=== PATIENT | female | born 1985 | race Caucasian/White ===

== ENCOUNTER 2016-12-09 11:38 | Emergency (ER) | payer SELFPAY ==
[2016-12-09] MEDS ORDERED: ONDANSETRON 4 MG TAB.RAPDIS PO ONE (12:01)
--- NOTE | 2016-12-09 12:02 | ER Document Report ---
ED Medical Screen (RME) - General Stated Complaint: VAGINAL DISCHARGE, HEADACHE Notes: Patient complains of vaginal discharge, itchy and has a green tint for 2 weeks. States vomiting for the last 3 days. Denies fever or diarrhea. I have greeted and performed a rapid initial assessment of this patient. A comprehensive ED assessment and evaluation of the patient, analysis of test results and completion of the medical decision making process will be conducted by additional ED providers. TRAVEL OUTSIDE OF THE [place] IN LAST 30 DAYS: No - Related Data Allergies/Adverse Reactions: Penicillins Allergy (Severe, Verified 12/09/16 12:01) Anaphylaxis Past Medical History - Past Medical History Cardiac Medical History: Reports: Hx Congestive Heart Failure Pulmonary Medical History: Reports: Hx Bronchitis Renal/ Medical History: Reports: Hx Ovarian Cysts - PCOS IN THE PAST, WAS ON METFORMIN BEFORE . Denies: Hx Pelvic Inflammatory Disease Malignancy Medical History: Denies: Hx Breast Cancer, Hx Cervical Cancer, Hx Ovarian Cancer GI Medical History: Reports: Hx Gastroesophageal Reflux Disease. Denies: Hx Hiatal Hernia, Hx Ulcer Musculoskeltal Medical History: Denies Hx Fibromyalgia, Reports Hx Musculoskeletal Deformity, Reports Hx Musculoskeletal Trauma Psychiatric Medical History: Reports: Hx Anxiety, Hx Depression - ON CELEXA Denies: Hx Bipolar Disorder, Hx Post Traumatic Stress Disorder, Hx Schizophrenia Traumatic Medical History: Reports: Hx Fractures, Hx Spine Fracture Infectious Medical History: Denies: Hx HIV Past Surgical History: Reports: Hx Appendectomy, Hx Section - X3 - Immunizations Immunizations up to date: Yes Hx Diphtheria, Pertussis, Tetanus Vaccination: Yes Physical Exam - Vital signs Vitals: Temp Pulse Resp BP Pulse Ox 97.9 F 103 H 16 116/80 98 12/09/16 11:57 12/09/16 11:57 12/09/16 11:57 12/09/16 11:57 12/09/16 11:57 Course - Vital Signs Vital signs: Temp Pulse Resp BP Pulse Ox 97.9 F 103 H 16 116/80 98 12/09/16 11:57 12/09/16 11:57 12/09/16 11:57 12/09/16 11:57 12/09/16 11:57
[2016-12-09 12:38] LABS: APPEARANCE,URINE CLOUDY; BILIRUBIN,URINE NEGATIVE (NEGATIVE); GLUCOSE, URINE NEGATIVE (NEGATIVE); KETONES,URINE TRACE mg/dL (NEGATIVE); LEUKOCYTE ESTERASE,URINE LARGE (NEGATIVE); NITRITE,URINE NEGATIVE (NEGATIVE); PROTEIN,URINE 100 mg/dL (NEGATIVE); URINE SPECIFIC GRAVITY 1.029; UROBILINOGEN,URINE NEGATIVE mg/dL (<2.0)
[2016-12-09] MEDS ORDERED: NORMAL SALINE 1000 ML 1,000 ML IV ONE (14:44)
[2016-12-09] MEDS ORDERED: ACETAMINOPHEN 325 MG TABLET PO ONE (14:45)
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
[2016-12-09] MEDS ORDERED: DIPHENHYDRAMINE HCL 50 MG/ML VIAL IV ONE (16:45)
[2016-12-09] MEDS ORDERED: METOCLOPRAMIDE HCL INJ/PF 10 MG/2 ML SDV IV ONE (16:45)
[2016-12-09] MEDS ORDERED: KETOROLAC TROMETHAMINE INJ/PF 30 MG/1 ML SDV IV ONE (16:45)
[2016-12-09 17:24] LABS: ABSOLUTE EOSINOPHILS # (AUTO) 0.1 10^3/uL (0.0-0.6); ABSOLUTE LYMPHOCYTES (AUTO) 1.5 10^3/uL (0.5-4.7); ABSOLUTE MONOCYTES (AUTO) 0.4 10^3/uL (0.1-1.4); ABSOLUTE NEUT (AUTO) 3.8 10^3/uL (1.7-8.2); BASOPHILS % (AUTO) 0.5 % (0-2); EOSINOPHILS % (AUTO) 1.3 % (0-6); HEMATOCRIT 38.8 % (36.0-47.0); HEMOGLOBIN 13.1 g/dL (12.0-15.5); HGB HCT DIFFERENCE 0.5; LYMPHOCYTES % (AUTO) 25.9 % (13-45); MEAN CORPUSCULAR HGB CONC 33.9 g/dL (32.0-36.0); MEAN CORPUSCULAR VOLUME 89 fl (80-97); MONOCYTES % (AUTO) 7.5 % (3-13); RED BLOOD COUNT 4.38 10^6/uL (3.72-5.28); RED CELL DISTRIBUTION WIDTH 12.5 % (11.5-14.0); SEGMENTED NEUTROPHILS % (AUTO) 64.8 % (42-78); WHITE BLOOD COUNT 5.9 10^3/uL (4.0-10.5)
[2016-12-09 17:45] LABS: ALANINE AMINOTRANSFERASE 62 U/L (9-52); ALBUMIN 4.2 g/dL (3.5-5.0); ALKALINE PHOSPHATASE 81 U/L (38-126); ANION GAP 13 (5-19); ASPARTATE AMINO TRANSFERASE 33 U/L (14-36); BILIRUBIN,DIRECT 0.3 mg/dL (0.0-0.4); BILIRUBIN,TOTAL 0.6 mg/dL (0.2-1.3); BLOOD UREA NITROGEN 10 mg/dL (7-20); CALCIUM 9.8 mg/dL (8.4-10.2); CARBON DIOXIDE 27 mmol/L (22-30); CHLORIDE 103 mmol/L (98-107); CREATININE RESULT 0.66 mg/dL (0.52-1.25); GLUCOSE 86 mg/dL (75-110); LIPASE 82.6 U/L (23-300); POTASSIUM 4.1 mmol/L (3.6-5.0); SODIUM 143.2 mmol/L (137-145); TOTAL PROTEIN 7.6 g/dL (6.3-8.2)
[2016-12-09] MEDS ORDERED: METRONIDAZOLE 500 MG TABLET PO ONE (17:45)
[2016-12-09 18:26] LABS: CHLAM PCR NOT DETECTED (NOT DETECT)
[2016-12-09] MEDS ORDERED: AZITHROMYCIN 250 MG TABLET PO ONE (19:51)
[2016-12-09] MEDS ORDERED: GENTAMICIN SULFATE INJ 80 MG/2 ML VIAL IM ONE (19:53)
[2016-12-09 21:46] VITALS: BP 99/56
== END 2016-12-09 21:46 | disposition home or self-care (01) ==
LOC: ER 11:38
DX: A59.01 Trichomonal vulvovaginitis (principal); R10.2 Pelvic and perineal pain; R51 Headache; R11.2 Nausea with vomiting, unspecified; F17.200 Nicotine dependence, unspecified, uncomplicated; K21.9 Gastro-esophageal reflux disease without esophagitis; Z88.0 Allergy status to penicillin
CPT/HCPCS: 99284; 96372; 96374; 96375; 36415; 87210; 83690; 85025; 81025; 80053; 81001; 87491; 87591; 76830; 93976; 70450; J1200; S0119; J1580; J1885; J2765; J7030

== ENCOUNTER 2017-01-14 20:57 | Emergency (ER) | payer SELFPAY ==
[2017-01-14 21:09] VITALS: BP 119/84
[2017-01-14 21:45] LABS: ABSOLUTE BASOPHILS # (AUTO) 0.1 10^3/uL (0.0-0.2); ABSOLUTE EOSINOPHILS # (AUTO) 0.1 10^3/uL (0.0-0.6); ABSOLUTE LYMPHOCYTES (AUTO) 1.7 10^3/uL (0.5-4.7); ABSOLUTE MONOCYTES (AUTO) 0.5 10^3/uL (0.1-1.4); ABSOLUTE NEUT (AUTO) 3.5 10^3/uL (1.7-8.2); BASOPHILS % (AUTO) 0.9 % (0-2); EOSINOPHILS % (AUTO) 2.3 % (0-6); HEMOGLOBIN 13.7 g/dL (12.0-15.5); HGB HCT DIFFERENCE 1.1; LYMPHOCYTES % (AUTO) 28.4 % (13-45); MEAN CORPUSCULAR HEMOGLOBIN 29.7 pg (27.0-33.4); MEAN CORPUSCULAR HGB CONC 34.3 g/dL (32.0-36.0); MEAN CORPUSCULAR VOLUME 87 fl (80-97); MONOCYTES % (AUTO) 9.1 % (3-13); RED BLOOD COUNT 4.61 10^6/uL (3.72-5.28); RED CELL DISTRIBUTION WIDTH 12.1 % (11.5-14.0); SEGMENTED NEUTROPHILS % (AUTO) 59.3 % (42-78); WHITE BLOOD COUNT 5.9 10^3/uL (4.0-10.5)
[2017-01-14 21:47] LABS: APPEARANCE,URINE SLIGHTLY-CLOUDY; BILIRUBIN,URINE NEGATIVE (NEGATIVE); GLUCOSE, URINE NEGATIVE (NEGATIVE); KETONES,URINE 20 mg/dL (NEGATIVE); LEUKOCYTE ESTERASE,URINE NEGATIVE (NEGATIVE); NITRITE,URINE NEGATIVE (NEGATIVE); PROTEIN,URINE 30 mg/dL (NEGATIVE); URINE SPECIFIC GRAVITY 1.027
[2017-01-14 22:04] LABS: ALANINE AMINOTRANSFERASE 86 U/L (9-52); ALBUMIN 4.8 g/dL (3.5-5.0); ALKALINE PHOSPHATASE 75 U/L (38-126); ANION GAP 17 (5-19); ASPARTATE AMINO TRANSFERASE 62 U/L (14-36); BILIRUBIN,DIRECT 0.4 mg/dL (0.0-0.4); BILIRUBIN,TOTAL 1.1 mg/dL (0.2-1.3); BLOOD UREA NITROGEN 16 mg/dL (7-20); CALCIUM 10.6 mg/dL (8.4-10.2); CARBON DIOXIDE 33 mmol/L (22-30); CHLORIDE 93 mmol/L (98-107); CREATININE RESULT 0.84 mg/dL (0.52-1.25); GLUCOSE 93 mg/dL (75-110); LIPASE 54.1 U/L (23-300); POTASSIUM 3.6 mmol/L (3.6-5.0); SODIUM 143.3 mmol/L (137-145); TOTAL PROTEIN 8.6 g/dL (6.3-8.2)
== END 2017-01-14 23:55 | disposition left against medical advice (07) ==
LOC: ER 20:57
DX: Z53.21 Procedure and treatment not carried out due to patient leaving prior to being seen by health care provider (principal)
CPT/HCPCS: 36415; 80053; 81001; 81025; 83690; 85025

== ENCOUNTER 2017-02-13 11:58 | Emergency (ER) | payer SELFPAY ==
[2017-02-13 12:09] VITALS: BP 114/74
[2017-02-13] MEDS ORDERED: CEPHALEXIN 500 MG CAPSULE PO ONE (12:42)
[2017-02-13] MEDS ORDERED: SULFAMETHOXAZOLE/TRIMETHOPRIM 800-160 MG TABLET PO ONE (12:42)
--- NOTE | 2017-02-13 12:44 | ER Document Report ---
ED Skin Rash/Insect Bite/Abscs - General Chief Complaint: Hand Swelling Stated Complaint: POSSIBLE INSECT BITE Time Seen by Provider: 02/13/17 12:33 Mode of Arrival: Ambulatory Information source: Patient TRAVEL OUTSIDE OF THE [place] IN LAST 30 DAYS: No - HPI Patient complains to provider of: Tender/swollen area, Insect bite Onset: Other - 3 days Onset/Duration: Persistent Quality of pain: Achy Severity: Moderate Pain Level: 3 Skin Character: Erythema, Swelling, Tenderness Skin Temperature: Hot Quality of rash: Painful Identify cause: No Exacerbated by: Denies Relieved by: Denies Similar symptoms previously: No Recently seen / treated by doctor: No Notes: Is a 31-year-old female who presents to the emergency room complaining of painful erythematous swelling to her right hand going on and worsening over the past 2-3 days, she reports initially complains that her on the dorsal surface of the hand and she is unaware of what that was, her symptoms have worsened, there is no drainage, no injury, she woke up this morning and has swelling with redness to her right lower eyelid as well - Related Data Allergies/Adverse Reactions: Penicillins Allergy (Severe, Verified 02/13/17 12:08) Anaphylaxis Past Medical History - General Information source: Patient - Social History Smoking Status: Current Every Day Smoker Chew tobacco use (# tins/day): No Frequency of alcohol use: None Drug Abuse: None Family History: Arthritis, Malignancy, Thyroid Disfunction Patient has suicidal ideation: No Patient has homicidal ideation: No - Past Medical History Cardiac Medical History: Reports: Hx Congestive Heart Failure Pulmonary Medical History: Reports: Hx Bronchitis Renal/ Medical History: Reports: Hx Ovarian Cysts - PCOS IN THE PAST, WAS ON METFORMIN BEFORE . Denies: Hx Peritoneal Dialysis, Hx Pelvic Inflammatory Disease Malignancy Medical History: Denies: Hx Breast Cancer, Hx Cervical Cancer, Hx Ovarian Cancer GI Medical History: Reports: Hx Gastroesophageal Reflux Disease. Denies: Hx Hiatal Hernia, Hx Ulcer Musculoskeltal Medical History: Denies Hx Fibromyalgia, Reports Hx Musculoskeletal Deformity, Reports Hx Musculoskeletal Trauma Psychiatric Medical History: Reports: Hx Anxiety, Hx Depression - ON CELEXA Denies: Hx Bipolar Disorder, Hx Post Traumatic Stress Disorder, Hx Schizophrenia Traumatic Medical History: Reports: Hx Fractures, Hx Spine Fracture Infectious Medical History: Denies: Hx HIV Past Surgical History: Reports: Hx Appendectomy, Hx Section - X3 - Immunizations Immunizations up to date: Yes Hx Diphtheria, Pertussis, Tetanus Vaccination: Yes Review of Systems - Review of Systems Constitutional: No symptoms reported EENT: See HPI Cardiovascular: No symptoms reported Respiratory: No symptoms reported Gastrointestinal: No symptoms reported Genitourinary: No symptoms reported Female Genitourinary: No symptoms reported Musculoskeletal: No symptoms reported Skin: See HPI Hematologic/Lymphatic: No symptoms reported Neurological/Psychological: No symptoms reported -: Yes All other systems reviewed and negative Physical Exam - Vital signs Vitals: Temp Pulse Resp BP Pulse Ox 98 F 94 18 114/74 98 02/13/17 12:08 02/13/17 12:08 02/13/17 12:08 02/13/17 12:08 02/13/17 12:08 - Notes Notes: - General General appearance: Appears well, Alert In distress: None - HEENT Head: Normocephalic, Atraumatic Eyes: Lower eyelid with swelling, erythema, stye development Conjunctiva: Normal Extraocular movements intact: Yes Eyelashes: Normal Pupils: PERRL - Respiratory Respiratory status: No respiratory distress - Cardiovascular Rhythm: Regular - Abdominal Inspection: Normal - Back Back: Normal - Extremities General upper extremity: Right hand with erythema and swelling to dorsal surface , starts at the wrist and ends at the MCPs, there is a small area over the distal portion of the second metacarpal with a puncture, there is no abscess development, no fluctuance, no drainage, distal sensation and motor is intact, 2 + radial pulses General lower extremity: Normal inspection - Neurological Neuro grossly intact: Yes Orientation: AAOx4 [place] Coma Scale Eye Opening: Spontaneous [place] Coma Scale Verbal: Oriented Mookie Coma Scale Motor: Obeys Commands [place] Coma Scale Total: 15 - Psychological Associated symptoms: Normal affect, Normal mood - Skin Skin Temperature: Warm Skin Moisture: Dry Skin Color: Normal Course - Re-evaluation Re-evalutation: 02/13/17 12:47 Patient started on antibiotics for cellulitis of the right hand, advised to follow-up with a primary care provider or return if symptoms worsen, patient acknowledges understanding and agreement with this plan - Vital Signs Vital signs: Temp Pulse Resp BP Pulse Ox 98 F 94 18 114/74 98 02/13/17 12:08 02/13/17 12:08 02/13/17 12:08 02/13/17 12:08 02/13/17 12:08 Discharge - Discharge Clinical Impression: Cellulitis of right hand Sty, external Qualifiers: Laterality: right Eyelid: lower Qualified Code(s): H00.012 - Hordeolum externum right lower eyelid Condition: Stable Disposition: HOME, SELF-CARE Instructions: Cellulitis ([facility]), Sty ([facility]) Additional Instructions: Follow up with your primary care provider in one to 2 days. Return to the emergency room immediately if symptoms worsen or any additional concerns. Prescriptions: Cephalexin Monohydrate [Keflex 500 mg Capsule] 500 mg PO BID #20 capsule Hydrocodone/Acetaminophen [Hydrocodon-Acetaminophen 5-325] 1 each PO Q6 #20 tablet Sulfamethoxazole/Trimethoprim [Bactrim Ds Tablet] 1 each PO BID #20 tablet Forms: Special Work Note, Smoking Cessation Education
== END 2017-02-13 12:48 | disposition home or self-care (01) ==
LOC: ER 11:58
DX: L03.113 Cellulitis of right upper limb (principal); H00.012 Hordeolum externum right lower eyelid; M79.89 Other specified soft tissue disorders; F17.200 Nicotine dependence, unspecified, uncomplicated; I50.9 Heart failure, unspecified
CPT/HCPCS: 99283

== ENCOUNTER 2017-03-26 15:40 | Emergency (ER) | payer SELFPAY ==
--- NOTE | 2017-03-26 17:02 | ER Document Report ---
HPI - HPI Patient complains to provider of: pain and swelling of left elbow, possible bug bite Onset: Other - 3 dyas ago Quality of pain: Achy, Throbbing Pain Level: 5 Associated Symptoms: denies: Chills, Fever Exacerbated by: Movement, Walking Relieved by: Remaining still Recently seen / treated by doctor: No - CARDIOVASCULAR Cardiovascular: DENIES: Chest pain - REPRODUCTIVE LMP: november 2016 Reproductive: DENIES: : - DERM Skin Color: Erythema Past Medical History - Social History Smoking Status: Unknown if Ever Smoked Family History: Arthritis, Malignancy, Thyroid Disfunction Patient has suicidal ideation: No Patient has homicidal ideation: No - Past Medical History Cardiac Medical History: Reports: Hx Congestive Heart Failure Pulmonary Medical History: Reports: Hx Bronchitis Renal/ Medical History: Reports: Hx Ovarian Cysts - PCOS IN THE PAST, WAS ON METFORMIN BEFORE . Denies: Hx Peritoneal Dialysis, Hx Pelvic Inflammatory Disease Malignancy Medical History: Denies: Hx Breast Cancer, Hx Cervical Cancer, Hx Ovarian Cancer GI Medical History: Reports: Hx Gastroesophageal Reflux Disease. Denies: Hx Hiatal Hernia, Hx Ulcer Musculoskeltal Medical History: Denies Hx Fibromyalgia, Reports Hx Musculoskeletal Deformity, Reports Hx Musculoskeletal Trauma Psychiatric Medical History: Reports: Hx Anxiety, Hx Depression - ON CELEXA Denies: Hx Bipolar Disorder, Hx Post Traumatic Stress Disorder, Hx Schizophrenia Traumatic Medical History: Reports: Hx Fractures, Hx Spine Fracture Infectious Medical History: Denies: Hx HIV Past Surgical History: Reports: Hx Appendectomy, Hx Section - X3 - Immunizations Immunizations up to date: Yes Hx Diphtheria, Pertussis, Tetanus Vaccination: Yes Vertical Provider Document - CONSTITUTIONAL Agree With Documented VS: Yes Exam Limitations: No Limitations General Appearance: WD/WN, No Apparent Distress - INFECTION CONTROL TRAVEL OUTSIDE OF THE [place] IN LAST 30 DAYS: No - RESPIRATORY Respiratory: Breath Sounds Normal, No Respiratory Distress, Chest Non-Tender O2 Sat by Pulse Oximetry: 99 - CARDIOVASCULAR Cardiovascular: Regular Rate, Regular Rhythm, No Murmur Pulses: Normal: Radial - MUSCULOSKELETAL/EXTREMETIES Musculoskeletal/Extremeties: MAEW, FROM, Tender - at site, No Edema. negative: Eccymosis - NEURO Level of Consciousness: Awake, Alert, Appropriate Motor/Sensory: No Motor Deficit, No Sensory Deficit - DERM Integumentary: Warm, Dry Adult Front & Back Diagram: 1 - cellulitis with central head Notes: no fluctuance. There is induration, no drainage Course - Re-evaluation Re-evalutation: 03/26/17 21:38 31-year-old female who is hemodynamic stable, no acute distress and afebrile. Presentation consistent with localized cellulitis. Borders marked. Patient initiated on antibiotics to cover for MRSA. Patient to be discharged home with strict return precautions. Patient is agreeable with plan. - Vital Signs Vital signs: Temp Pulse Resp BP Pulse Ox 98.3 F 94 18 133/89 H 99 03/26/17 15:58 03/26/17 15:58 03/26/17 15:58 03/26/17 15:58 03/26/17 15:58 Discharge - Discharge Clinical Impression: Cellulitis Qualifiers: Site of cellulitis: extremity Site of cellulitis of extremity: upper extremity Laterality: left Qualified Code(s): L03.114 - Cellulitis of left upper limb Condition: Good Disposition: HOME, SELF-CARE Instructions: Cellulitis ([facility]) Prescriptions: Acetaminophen with Codeine [Acetaminophen-Cod #3 Tablet] 1 each PO Q6HP PRN #15 tablet PRN Reason: Cephalexin Monohydrate [Keflex 500 mg Capsule] 500 mg PO BID #20 capsule Sulfamethoxazole/Trimethoprim [Bactrim Ds Tablet] 1 each PO BID #20 tablet Referrals: KORIN LEARY MD [NO LOCAL MD] - Follow up as needed [facility] [NO LOCAL MD] - Follow up as needed
[2017-03-26] MEDS ORDERED: SULFAMETHOXAZOLE/TRIMETHOPRIM 800-160 MG TABLET PO ONE (17:12)
[2017-03-26] MEDS ORDERED: ACETAMINOPHEN WITH CODEINE #3 TABLET PO ONE (17:12)
[2017-03-26] MEDS ORDERED: CEPHALEXIN 500 MG CAPSULE PO ONE (17:12)
[2017-03-26 17:25] VITALS: BP 132/88
== END 2017-03-26 17:18 | disposition home or self-care (01) ==
LOC: ER 15:40
DX: L03.114 Cellulitis of left upper limb (principal); M25.522 Pain in left elbow; M79.89 Other specified soft tissue disorders
CPT/HCPCS: 99281

== ENCOUNTER 2017-03-28 13:52 | Inpatient (IN) | payer SELFPAY ==
[2017-03-28] MEDS ORDERED: VANCOMYCIN HCL INJ 1000 MG VIAL IV ONE (14:43)
[2017-03-28] MEDS ORDERED: HYDROMORPHONE HCL INJ/PF 2 MG/ML AMPULE IV ONE (14:43)
--- NOTE | 2017-03-28 14:59 | ER Document Report ---
ED General - General Chief Complaint: Abscess Stated Complaint: LEFT ELBOW INFECTION Time Seen by Provider: 03/28/17 14:16 TRAVEL OUTSIDE OF THE [place] IN LAST 30 DAYS: No - HPI Notes: Patient is a 31-year-old female presents the ED complaining of a worsening infection to her left elbow. Patient states that she was seen 2 days ago and was prescribed Keflex and Bactrim. At that time, the she was told it was a cellulitis and she did not notice any abscess/discharge. Pt states that she has been having worsening pain, redness, and now purulent discharge. Pt states that the skin was marked two days ago with a skin marker and she was told to return if the redness went beyond the border, which it now has. Pt states that she is still able to move her elbow, but does have pain involved. Pt states that her pain is mod-severe. She is still able to eat/drink with no problems. Denies history of MRSA. Denies any headache, fever, uri, sore throat, cp, palp , syncope, cough, wheeze, sob, dyspnea, abd pain, n/v/d, dysuria. - Related Data Allergies/Adverse Reactions: Penicillins Allergy (Severe, Verified 03/28/17 13:54) Anaphylaxis Past Medical History - Social History Smoking Status: Current Every Day Smoker Family History: Arthritis, Malignancy, Thyroid Disfunction Patient has suicidal ideation: No Patient has homicidal ideation: No - Past Medical History Cardiac Medical History: Reports: Hx Congestive Heart Failure Pulmonary Medical History: Reports: Hx Bronchitis Renal/ Medical History: Reports: Hx Ovarian Cysts - PCOS IN THE PAST, WAS ON METFORMIN BEFORE . Denies: Hx Peritoneal Dialysis, Hx Pelvic Inflammatory Disease Malignancy Medical History: Denies: Hx Breast Cancer, Hx Cervical Cancer, Hx Ovarian Cancer GI Medical History: Reports: Hx Gastroesophageal Reflux Disease. Denies: Hx Hiatal Hernia, Hx Ulcer Musculoskeltal Medical History: Denies Hx Fibromyalgia, Reports Hx Musculoskeletal Deformity, Reports Hx Musculoskeletal Trauma Psychiatric Medical History: Reports: Hx Anxiety, Hx Depression - ON CELEXA Denies: Hx Bipolar Disorder, Hx Post Traumatic Stress Disorder, Hx Schizophrenia Traumatic Medical History: Reports: Hx Fractures, Hx Spine Fracture Infectious Medical History: Denies: Hx HIV Past Surgical History: Reports: Hx Appendectomy, Hx Section - X3 - Immunizations Immunizations up to date: Yes Hx Diphtheria, Pertussis, Tetanus Vaccination: Yes Review of Systems - Review of Systems Notes: REVIEW OF SYSTEMS: CONSTITUTIONAL : Denies fever, chills, or sweats. Denies recent illness. EENT: Denies eye, ear, throat, or mouth pain or symptoms. Denies nasal or sinus congestion or discharge. Denies throat, tongue, or mouth swelling or difficulty swallowing. CARDIOVASCULAR: Denies chest pain. Denies palpitations or racing or irregular heart beat. Denies ankle edema. RESPIRATORY: Denies cough, cold, or chest congestion. Denies shortness of breath, difficulty breathing, or wheezing. GASTROINTESTINAL: Denies abdominal pain or distention. Denies nausea, vomiting , or diarrhea. Denies blood in vomitus, stools, or per rectum. Denies black, tarry stools. Denies constipation. GENITOURINARY: Denies difficulty urinating, painful urination, burning, frequency, blood in urine, or discharge. MUSCULOSKELETAL: see hpi SKIN: see hpi NEUROLOGICAL: Denies dizziness or lightheadedness. Denies headache. Denies weakness or paralysis or loss of use of either side. Denies problems with gait or speech. Denies sensory loss, numbness, or tingling. ALL OTHER SYSTEMS REVIEWED AND NEGATIVE. Dictation was performed using [employer] voice recognition software Physical Exam - Vital signs Vitals: Temp Pulse Resp BP Pulse Ox 99.5 F 94 18 132/80 H 99 03/28/17 13:55 03/28/17 13:55 03/28/17 13:55 03/28/17 13:55 03/28/17 13:55 Notes: PHYSICAL EXAMINATION: GENERAL: Well-appearing, well-nourished and in no acute distress. NECK: Normal range of motion, supple without lymphadenopathy. No rigidity. LUNGS: Breath sounds clear to auscultation bilaterally and equal. No wheezes rales or rhonchi. HEART: Regular rate and rhythm without murmurs, rubs, gallops. Musculoskeletal: Left UE: FROM to passive/active. Strength 5+/5. N/V intact distal. + tenderness to palpation the olecranon and the peritrochlear left elbow along with the surrounding soft tissue of the arm/forearm. Extremities: No cyanosis, clubbing, or edema b/l. Peripheral pulses 2+. Capillary refill less than 3 seconds. NEUROLOGICAL: Normal sensory, motor exams PSYCH: Normal mood, normal affect. SKIN: + erythema, inflammation, induration, purulent discharge, abscess ( superficially showing approx 2-3cm) to the anteroposterior elbow/prox forearm. Surrounding erythema well beyond the previously skin marked borders expanding into the mid forearm and mid/distal arm. No obvious red streaking visualized. + tenderness. Course - Re-evaluation Re-evalutation: 03/28/17 14:[address] Armstrong who also eval'd the patient: Patient is an afebrile, well-hydrated, 31yo female who presents with worsening/ expanding cellulitis, development of small abscess, and lymphangitis. Vitals are currently stable and PE otherwise unremarkable. Saline lock placed, CT with contrast of the left UE, BW, dilaudid, fentanyl, and IV Vancomycin 1g. CT did not show any large abscess, but did not the marked cellulitis. Urine drug screen/ also ordered per hospitalist. 03/28/17 18:[address] Arnett (Ortho) and Dr. Bojorquez (hospitalist). Both came and evaluated the patient in her room. Ortho would like her to be admitted to floor and he can consult with any worsening abscess, pending response to IV antibiotics. We will admit for continued IV antibiotic management through hospitalist services to med floor. Pt is in agreement with plan. - Vital Signs Vital signs: Temp Pulse Resp BP Pulse Ox 99.5 F 74 16 106/70 97 03/28/17 13:55 03/28/17 16:43 03/28/17 16:43 03/28/17 16:43 03/28/17 16:43 - Laboratory Result Diagrams: 03/28/17 14:45 03/28/17 14:45 Laboratory results interpreted by me: 03/28/17 03/28/17 14:45 14:45 RDW 14.4 H BUN 6 L Glucose 117 H AST 103 H ALT 212 H Discharge - Discharge Clinical Impression: Cellulitis Qualifiers: Site of cellulitis: extremity Site of cellulitis of extremity: upper extremity Laterality: left Qualified Code(s): L03.114 - Cellulitis of left upper limb Condition: Stable Disposition: ADMITTED INPATIENT Admitting Provider: Hospitalist - Dr. Bojorquez Unit Admitted: Medical Floor
[2017-03-28 15:18] LABS: ABSOLUTE EOSINOPHILS # (AUTO) 0.1 10^3/uL (0.0-0.6); ABSOLUTE LYMPHOCYTES (AUTO) 1.3 10^3/uL (0.5-4.7); ABSOLUTE MONOCYTES (AUTO) 0.7 10^3/uL (0.1-1.4); ABSOLUTE NEUT (AUTO) 4.9 10^3/uL (1.7-8.2); BASOPHILS % (AUTO) 0.4 % (0-2); EOSINOPHILS % (AUTO) 1.4 % (0-6); HEMATOCRIT 41.3 % (36.0-47.0); HEMOGLOBIN 13.7 g/dL (12.0-15.5); HGB HCT DIFFERENCE -0.2; LYMPHOCYTES % (AUTO) 18.3 % (13-45); MEAN CORPUSCULAR HEMOGLOBIN 29.3 pg (27.0-33.4); MEAN CORPUSCULAR HGB CONC 33.3 g/dL (32.0-36.0); MEAN CORPUSCULAR VOLUME 88 fl (80-97); MONOCYTES % (AUTO) 9.9 % (3-13); RED BLOOD COUNT 4.69 10^6/uL (3.72-5.28); RED CELL DISTRIBUTION WIDTH 14.4 % (11.5-14.0)
[2017-03-28 15:39] LABS: ALANINE AMINOTRANSFERASE 212 U/L (9-52); ALBUMIN 4.1 g/dL (3.5-5.0); ALKALINE PHOSPHATASE 86 U/L (38-126); ANION GAP 12 (5-19); ASPARTATE AMINO TRANSFERASE 103 U/L (14-36); BILIRUBIN,DIRECT 0.4 mg/dL (0.0-0.4); BILIRUBIN,TOTAL 0.8 mg/dL (0.2-1.3); BLOOD UREA NITROGEN 6 mg/dL (7-20); CALCIUM 9.7 mg/dL (8.4-10.2); CARBON DIOXIDE 24 mmol/L (22-30); CHLORIDE 104 mmol/L (98-107); CREATININE RESULT 0.55 mg/dL (0.52-1.25); GLUCOSE 117 mg/dL (75-110); POTASSIUM 4.1 mmol/L (3.6-5.0); SODIUM 139.8 mmol/L (137-145); TOTAL PROTEIN 7.6 g/dL (6.3-8.2)
--- NOTE | 2017-03-28 16:11 | RADIOLOGY REPORT (SQ) ---
EXAM DESCRIPTION: CT LT UPPER EXTREMITY WITH COMPLETED DATE/TIME: 03/28/2017 3:47 pm REASON FOR STUDY: expanding cellulitis/abscess left prox forearm/elb COMPARISON: None TECHNIQUE: Axial imaging performed through the left elbow with reformatted coronal and sagittal imag ing windowed for bone and soft tissues. Imaging was performed after the uneventful intravenous admin istration of 50 mL of Isovue 370. Images saved to PACS. 3D IMAGING: Were 3D images as MIP, SSD, or volume rendering performed at the work station? No All CT scanners at this facility use dose modulation, iterative reconstruction, and/or weight based d osing when appropriate to reduce radiation dose to as low as reasonably achievable (ALARA). [facility]: Dose Right [facility]: CareDose [facility]: Dose Right [facility]: Teradose 4D [facility]: Smart Technologies LIMITATIONS: None. RADIATION DOSE: 4.12 mGy. FINDINGS: SOFT TISSUES: Posterior forearm subcutaneous fat stranding extends from the level of the o lecranon distally extending beyond the imaged field of view. No defined rim enhancing collection is present, to suggest abscess at this time. There is no evidence of extension into the muscle. There is no periosteal reaction to suggest osteomyelitis. BONES: No acute fracture. No dislocation. MINERALIZATION: Normal. OTHER: No other significant finding. IMPRESSION: Extensive subcutaneous fat stranding consistent with given history of cellulitis; no def ined abscess or evidence of osteomyelitis. TECHNICAL DOCUMENTATION: JOB ID: [id number] Quality ID # [id number]: Final reports with documentation of one or more dose reduction techniques (e.g., Au tomated exposure control, adjustment of the mA and/or kV according to patient size, use of iterative reconstruction technique) 2010 [employer]- All Rights Reserved
[2017-03-28] MEDS ORDERED: FENTANYL CITRATE INJ/PF 100 MCG/2 ML AMPUL IV ONE (16:27)
[2017-03-28] MEDS ORDERED: VANCOMYCIN HCL 0 MG in DEXTROSE 5%-WATER 250 ML IV NR (17:30)
[2017-03-28] MEDS ORDERED: MORPHINE SULFATE 10 MG/ML INJ IV PRN (17:31)
[2017-03-28] MEDS ORDERED: ACETAMINOPHEN 325 MG TABLET PO PRN (17:33)
[2017-03-28] MEDS ORDERED: MAG HYDROX/AL HYDROX/SIMETH SUSP 30 ML UDCUP PO PRN (17:33)
[2017-03-28] MEDS ORDERED: ONDANSETRON HCL INJ/PF 4 MG/2 ML SDV IV PRN (17:33)
[2017-03-28] MEDS ORDERED: PROMETHAZINE HCL 25 MG SUPP.RECT PR PRN (17:33)
[2017-03-28 18:00] LABS: PROTHROMBIN TIME 14.9 SEC (11.4-15.4)
--- NOTE | 2017-03-28 18:16 | PDOC H&P ---
History of Present Illness Admission Date/PCP: 03/28/2017 No PCP History of Present Illness: Patient is a 31-year-old female presents the ED complaining of a worsening infection to her left elbow. Patient states that she was seen 2 days ago and was prescribed Keflex and Bactrim. At that time, the she was told it was a cellulitis and she did not notice any abscess/discharge. Pt states that she has been having worsening pain, redness, and now purulent discharge. Pt states that the skin was marked two days ago with a skin marker and she was told to return if the redness went beyond the border, which it now has. Pt states that she is still able to move her elbow, but does have pain involved. Pt states that her pain is mod-severe. She is still able to eat/drink with no problems. Denies history of MRSA. Denies any headache, fever, uri, sore throat, cp, palp , syncope, cough, wheeze, sob, dyspnea, abd pain, n/v/d, dysuria. Only completed one full day of outpatient therapy. Reports that she tried to pop this lesion. It had a small donovan on it and thought it was a pimple or bug bite. Patient is referred to hospital service for cellulitis Past Medical History Malignancy Medical History: Denies: Breast Cancer, Cervical Cancer, Ovarian Cancer GI Medical History: Denies: Hiatal Hernia Musculoskeltal Medical History: Denies: Fibromyalgia Psychiatric Medical History: Reports: Depression - ON CELEXA, General Anxiety Disorder Denies: Bipolar Disorder, Post Traumatic Stress Disorder Hematology: Reports: Anemia Denies: Hemophilia, Sickle Cell Disease Infectious Medical History: Denies: HIV Past Surgical History Past Surgical History: Reports: Appendectomy, Section - X3, Tubal Ligation Social History Smoking Status: Current Every Day Smoker Cigarettes Packs Per Day: 0.5 Frequency of Alcohol Use: Occasional Hx Recreational Drug Use: No - Advance Directive Resuscitation Status: Full Code Surrogate healthcare decision maker:: sister Family History Family History: Arthritis, Malignancy, Thyroid Disfunction Parental Family History Reviewed: Yes Children Family History Reviewed: Yes Sibling(s) Family History Reviewed.: Yes Medication/Allergy Home Medications: Pnv W-O Ca No5/Fe Fumarate/FA [-U Multiple Vitamin Capsule] 1 cap PO DAILY 06/19/13 Butalb/Acetaminophen/Caffeine [Fioricet 50-325-40 mg Tablet] 1 tab PO PRN PRN Citalopram Hydrobromide [Celexa 20 mg Tablet] 1 tab PO DAILY 11/16/13 Promethazine HCl [Phenergan 25 mg Tablet] 25 - 50 mg PO ASDIR PRN 11/21/13 Ascorbate Calcium [Vitamin C] 1 tab PO TID 11/25/13 Docusate Sodium [Colace 100 mg Capsule] 1 cap PO BID 11/25/13 Ferrous Sulfate [Feosol 325 mg Tablet] 1 tab PO BID 11/25/13 Ibuprofen [Motrin 800 mg Tablet] 1 tab PO Q8HP PRN 11/25/13 Oxycodone HCl/Acetaminophen [Percocet 5-325 mg Tablet] 1 tab PO Q4HP PRN Tramadol HCl [Ultram] 50 mg PO Q6HP PRN #20 tablet 03/06/15 Hydrocodone/Acetaminophen [[place] 5-325 Tablet] 1 each PO Q6 #15 tablet 04/30/15 Hydrocodone/Acetaminophen [[place] 5-325 mg Tablet] 1 tab PO TIDP PRN #14 tablet 07/21/15 Sulfamethoxazole/Trimethoprim [Septra-Ds 800-160 mg Tablet] 1 tab PO BID #20 tablet 07/21/15 Ondansetron [Zofran Odt 4 mg Tablet] 1 - 2 tab PO Q4H #10 tab.rapdis 07/24/15 Oxycodone HCl/Acetaminophen [Percocet 5-325 mg Tablet] 1 - 2 tab PO ASDIR PRN # 20 tablet 07/24/15 Clindamycin HCl 300 mg PO TID #30 capsule 02/17/16 Ondansetron [Zofran Odt 4 mg Tablet] 1 - 2 tab PO Q4H PRN #15 tab.rapdis Oxycodone HCl/Acetaminophen [Percocet 5-325 mg Tablet] 1 - 2 tab PO Q4H PRN #15 tablet 02/17/16 Naproxen 500 mg PO BID #20 tablet 07/02/16 Ondansetron [Zofran Odt 4 mg Tablet] 1 - 2 tab PO Q4H #10 tab.rapdis 07/02/16 Cyclobenzaprine HCl [Flexeril 10 mg Tablet] 10 mg PO TIDP PRN #15 tab 07/04/16 Famotidine [Pepcid 40 mg Tablet] 40 mg PO DAILY 5 Days 08/04/16 Prednisone [Deltasone 10 mg Tablet] 10 mg PO ASDIR PRN #21 tablet 08/04/16 Promethazine HCl [Phenergan 25 mg Tablet] 25 mg PO Q6H PRN #15 tablet 12/09/16 Cephalexin Monohydrate [Keflex 500 mg Capsule] 500 mg PO BID #20 capsule Hydrocodone/Acetaminophen [Hydrocodon-Acetaminophen 5-325] 1 each PO Q6 #20 tablet 02/13/17 Sulfamethoxazole/Trimethoprim [Bactrim Ds Tablet] 1 each PO BID #20 tablet 02/13 Acetaminophen with Codeine [Acetaminophen-Cod #3 Tablet] 1 each PO Q6HP PRN #15 tablet 03/26/17 Cephalexin Monohydrate [Keflex 500 mg Capsule] 500 mg PO BID #20 capsule Sulfamethoxazole/Trimethoprim [Bactrim Ds Tablet] 1 each PO BID #20 tablet 03/26 Allergies/Adverse Reactions: Penicillins Allergy (Severe, Verified 03/28/17 13:54) Anaphylaxis Review of Systems Constitutional: ABSENT: chills, fever(s), headache(s), weight gain, weight loss Eyes: ABSENT: visual disturbances Ears: ABSENT: hearing changes Cardiovascular: ABSENT: chest pain, dyspnea on exertion, edema, orthropnea, palpitations Respiratory: ABSENT: cough, hemoptysis Gastrointestinal: ABSENT: abdominal pain, constipation, diarrhea, hematemesis, hematochezia, nausea, vomiting Genitourinary: ABSENT: dysuria, hematuria Musculoskeletal: ABSENT: joint swelling Integumentary: PRESENT: as per HPI Neurological: ABSENT: abnormal gait, abnormal speech, confusion, dizziness, focal weakness, syncope Psychiatric: ABSENT: anxiety, depression, homidical ideation, suicidal ideation Endocrine: ABSENT: cold intolerance, heat intolerance, polydipsia, polyuria Hematologic/Lymphatic: ABSENT: easy bleeding, easy bruising Physical Exam Vital Signs: Temp Pulse Resp BP Pulse Ox 99.5 F 74 16 106/70 97 03/28/17 13:55 03/28/17 16:43 03/28/17 16:43 03/28/17 16:43 03/28/17 16:43 Intake & Output 03/27/17 03/28/17 03/29/17 06:59 06:59 06:59 Weight 78.6 kg General appearance: PRESENT: no acute distress, well-developed, well-nourished Head exam: PRESENT: atraumatic, normocephalic Eye exam: PRESENT: conjunctiva pink, EOMI, PERRLA. ABSENT: scleral icterus Ear exam: PRESENT: normal external ear exam Mouth exam: PRESENT: moist, tongue midline Neck exam: ABSENT: JVD, lymphadenopathy, thyromegaly, tracheal deviation Respiratory exam: PRESENT: clear to auscultation maritza. ABSENT: rales, rhonchi, wheezes Cardiovascular exam: PRESENT: RRR, +S1, +S2. ABSENT: diastolic murmur, gallop, rubs, systolic murmur Pulses: PRESENT: normal dorsalis pedis pul Vascular exam: PRESENT: normal capillary refill GI/Abdominal exam: PRESENT: normal bowel sounds, soft. ABSENT: distended, firm , guarding, hernia, mass, organolmegaly, rebound, rigid, tenderness Rectal exam: PRESENT: deferred Extremities exam: PRESENT: full ROM. ABSENT: calf tenderness, clubbing, pedal edema Neurological exam: PRESENT: alert, awake, oriented to person, oriented to place , oriented to time, oriented to situation, CN II-XII grossly intact. ABSENT: motor sensory deficit Psychiatric exam: PRESENT: appropriate affect, normal mood. ABSENT: homicidal ideation, suicidal ideation Skin exam: PRESENT: dry, intact, rash, warm. ABSENT: cyanosis Adult Front & Back Image: 1 - Erythema, induration, central area Results Laboratory Results: 03/28/17 14:45 03/28/17 14:45 03/28/17 03/28/17 14:45 14:45 WBC 7.0 RBC 4.69 Hgb 13.7 Hct 41.3 MCV 88 MCH 29.3 MCHC 33.3 RDW 14.4 H Plt Count 242 Seg Neutrophils % 70.0 Lymphocytes % 18.3 Monocytes % 9.9 Eosinophils % 1.4 Basophils % 0.4 Absolute Neutrophils 4.9 Absolute Lymphocytes 1.3 Absolute Monocytes 0.7 Absolute Eosinophils 0.1 Absolute Basophils 0.0 Sodium 139.8 Potassium 4.1 Chloride 104 Carbon Dioxide 24 Anion Gap 12 BUN 6 L Creatinine 0.55 Est GFR ( Amer) > 60 Est GFR (Non-Af Amer) > 60 Glucose 117 H Calcium 9.7 Total Bilirubin 0.8 AST 103 H ALT 212 H Alkaline Phosphatase 86 Total Protein 7.6 Albumin 4.1 Impressions: Upper Extremity CT 03/28/17 14:42 IMPRESSION: Extensive subcutaneous fat stranding consistent with given history of cellulitis; no defined abscess or evidence of osteomyelitis. Assessment & Plan - Diagnosis (1) Cellulitis Qualifiers: Site of cellulitis: extremity Site of cellulitis of extremity: upper extremity Laterality: left Qualified Code(s): L03.114 - Cellulitis of left upper limb Is this a current diagnosis for this admission?: YesPlan: Patient has cellulitis without evidence of sepsis, patient was on outpatient Bactrim and Keflex for [address] patient on vancomycin and Rocephin with Flagyl. Patient reports tolerating cephalosporins in the past. Will place patient on clindamycin to absorb strep toxin as this appears to be a streptococcal infection. Bacid for probiotic. Percocet for pain management (2) Generalized anxiety disorder Is this a current diagnosis for this admission?: YesPlan: Patient's home Xanax and Zoloft (3) Tobacco abuse Is this a current diagnosis for this admission?: YesPlan: Patch - Time Time Spent: 30 to 50 Minutes Medications reviewed and adjusted accordingly: Yes Anticipated discharge: Home - Inpatient Certification Based on my medical assessment, after consideration of the patient's comorbidities, presenting symptoms, or acuity I expect that the services needed warrant INPATIENT care.: Yes I certify that my determination is in accordance with my understanding of Medicare's requirements for reasonable and necessary INPATIENT services [42 CFR 412.3e].: Yes Medical Necessity: Failure to Improve With Outpatient Therapy, Need for IV Antibiotics 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
[2017-03-28] MEDS ORDERED: ALPRAZOLAM 0.5 MG TABLET PO ONE (18:30)
[2017-03-28] MEDS ORDERED: DIPHENHYDRAMINE HCL 50 MG/ML VIAL IV ONE (18:30)
[2017-03-28] MEDS ORDERED: SERTRALINE HCL 50 MG TABLET PO ONE (18:45)
[2017-03-28] MEDS ORDERED: NICOTINE 14 MG/24 HR PATCH.TD24 TD ONE (18:45)
[2017-03-28] MEDS ORDERED: CEFTRIAXONE 2 GM/D5W RTU 2 GM/50 ML RTUPB IV SCH (19:00)
[2017-03-28] MEDS ORDERED: DOCUSATE SODIUM 100 MG CAPSULE PO ONE (19:00)
[2017-03-28] MEDS: LACTOBACILLUS ACIDOPHILUS 250 MG TAB PO SCH (19:08)
[2017-03-28] MEDS: OXYCODONE-ACETAMINOPHEN 5-325 MG TABLET PO PRN (20:47)
[2017-03-28] MEDS ORDERED: VANCOMYCIN HCL INJ 1000 MG VIAL IV PRN (21:00)
[2017-03-28] MEDS: CLINDAMYCIN 600 MG/D5W RTU 600 MG/50 ML RTUPB IV SCH (21:06)
[2017-03-28] MEDS: METRONIDAZOLE 500 MG TABLET PO SCH (21:06)
[2017-03-28] MEDS: NORMAL SALINE 1000 ML 1,000 ML IV PRN (21:07)
[2017-03-28 21:10] LABS: URINE BARBITURATES SCREEN NEGATIVE; URINE METHADONE SCREEN NEGATIVE; URINE PHENCYCLIDINE SCREEN NEGATIVE
[2017-03-28 21:14] LABS: URINE OPIATES LOW UNCONFIRMED POSITIVE
[2017-03-28] MEDS ORDERED: VANCOMYCIN HCL INJ 1000 MG VIAL ONE (21:31)
[2017-03-28] MEDS ORDERED: FAMOTIDINE 20 MG TABLET PO SCH (22:00)
[2017-03-28] MEDS: ZOLPIDEM TARTRATE 5 MG TABLET PO SCH (22:02)
[2017-03-28] MEDS: VANCOMYCIN HCL 1,000 MG in DEXTROSE 5%-WATER 250 ML IV SCH (22:04)
[2017-03-28] MEDS ORDERED: DIPHENHYDRAMINE HCL 50 MG/ML VIAL IV PRN (23:29)
[2017-03-29] MEDS: OXYCODONE-ACETAMINOPHEN 5-325 MG TABLET PO PRN ×4 (02:17→20:19)
[2017-03-29 06:14] LABS: ABSOLUTE EOSINOPHILS # (AUTO) 0.1 10^3/uL (0.0-0.6); ABSOLUTE LYMPHOCYTES (AUTO) 1.5 10^3/uL (0.5-4.7); ABSOLUTE MONOCYTES (AUTO) 0.5 10^3/uL (0.1-1.4); ABSOLUTE NEUT (AUTO) 2.5 10^3/uL (1.7-8.2); BASOPHILS % (AUTO) 0.5 % (0-2); EOSINOPHILS % (AUTO) 2.8 % (0-6); LYMPHOCYTES % (AUTO) 31.7 % (13-45); MEAN CORPUSCULAR HEMOGLOBIN 28.9 pg (27.0-33.4); MEAN CORPUSCULAR HGB CONC 32.5 g/dL (32.0-36.0); MEAN CORPUSCULAR VOLUME 89 fl (80-97); MONOCYTES % (AUTO) 9.9 % (3-13); RED BLOOD COUNT 4.84 10^6/uL (3.72-5.28); RED CELL DISTRIBUTION WIDTH 14.6 % (11.5-14.0); SEGMENTED NEUTROPHILS % (AUTO) 55.1 % (42-78); WHITE BLOOD COUNT 4.6 10^3/uL (4.0-10.5)
[2017-03-29] MEDS: CLINDAMYCIN 600 MG/D5W RTU 600 MG/50 ML RTUPB IV SCH ×3 (06:21→21:02)
[2017-03-29] MEDS: METRONIDAZOLE 500 MG TABLET PO SCH (06:22)
[2017-03-29] MEDS: NORMAL SALINE 1000 ML 1,000 ML IV PRN (06:22)
[2017-03-29] MEDS: VANCOMYCIN HCL 1,000 MG in DEXTROSE 5%-WATER 250 ML IV SCH ×3 (06:23→22:21)
[2017-03-29 06:27] LABS: ALANINE AMINOTRANSFERASE 201 U/L (9-52); ALBUMIN 3.2 g/dL (3.5-5.0); ALKALINE PHOSPHATASE 68 U/L (38-126); ANION GAP 7 (5-19); ASPARTATE AMINO TRANSFERASE 122 U/L (14-36); BILIRUBIN,DIRECT 0.3 mg/dL (0.0-0.4); BILIRUBIN,TOTAL 0.4 mg/dL (0.2-1.3); BLOOD UREA NITROGEN 7 mg/dL (7-20); CALCIUM 8.3 mg/dL (8.4-10.2); CARBON DIOXIDE 25 mmol/L (22-30); CHLORIDE 106 mmol/L (98-107); CREATININE RESULT 0.57 mg/dL (0.52-1.25); GLUCOSE 131 mg/dL (75-110); SODIUM 137.9 mmol/L (137-145); TOTAL PROTEIN 6.6 g/dL (6.3-8.2)
[2017-03-29] MEDS: ENOXAPARIN SODIUM INJ 40 MG/0.4 ML DISP.SYRIN SUBCUT SCH (08:08)
[2017-03-29] MEDS: DOCUSATE SODIUM 100 MG CAPSULE PO SCH ×2 (08:09→17:34)
[2017-03-29] MEDS: ALPRAZOLAM 0.5 MG TABLET PO PRN ×2 (08:09→18:48)
--- NOTE | 2017-03-29 08:39 | Progress Note ---
Provider Note Provider Note: NIKOS CRYSTAL Search Criteria: Last Name 'Nikos' and First Name 'Crystal' and = ' and Request Period = 09/30/16' to 03/29/17' - 9 out of 9 Recipients Selected. Fill Date Product, Str, Form Qty Days Pt ID Prescriber Written RX# N/R* Pharm MED+ ------ ---- --------- --- ------- ----- --------- ------ 03/26/2017 ACETAMINOPHEN-COD #3 TABLET 15.00 4 [id number] 03/26/2017 [id number] Domitila [id number] 16.88 03/06/2017 ESZOPICLONE 3 MG TABLET 30.00 30 [id number] 03/06/2017 [id number] N [id number] 00.0 03/06/2017 ALPRAZOLAM 1 MG TABLET 60.00 30 [id number] 03/06/2017 [id number] N [id number] 00.0 02/13/2017 HYDROCODON-ACETAMINOPHEN 5-325 20.00 5 [id number] 02/13/2017 [id number] Domitila [id number] 20.0 [id number] JOSE MANUEL SUN; [facility], [address],, [place] [id number] FABIAN NAILS (DO); [address] [place] [address] [id number] CORAL RIVAS; [facility], EMERGENCY DEPARTMENT, [address] [place] [address] Pharmacies that dispensed prescriptions listed [id number] [facility]; [facility], [address] [place] [address] [id number] [facility] [phone]; [address] [place] [id number],
[2017-03-29] MEDS ORDERED: KETOROLAC TROMETHAMINE INJ/PF 30 MG/1 ML SDV IV PRN (09:24)
[2017-03-29] MEDS ORDERED: ONDANSETRON 4 MG TAB.RAPDIS PO PRN (09:25)
[2017-03-29] MEDS ORDERED: HYDROXYZINE HCL 10 MG TABLET PO PRN (09:33)
[2017-03-29] MEDS ORDERED: KETOROLAC TROMETHAMINE INJ/PF 30 MG/1 ML SDV ONE (09:45)
--- NOTE | 2017-03-29 10:08 | PROGRESS NOTE E ---
Progress Note NAME: LULI KNOTT : 1985 AGE: 31Y DATE: 03/29/2017 ROOM: 209 SUBJECTIVE: The patient is lying in bed. During my interview with the patient, she nodded off several times. When asked her why she was so sleepy, the patient stated that she did not get much rest overnight. The patient complains of ongoing pain in her left arm; however, again the patient cannot even keep her eyes open to talk to me. The patient stated that she felt really itchy overnight, did not develop a rash but felt that IV Benadryl was of great benefit to her. The patient also was concerned that her pain was not adequately managed. All of these were addressed and the patient did not voice any other concerns at this time. REVIEW OF SYSTEMS: Rest of review of systems is negative. MEDICATIONS: Medications have been reviewed. OBJECTIVE: GENERAL: The patient is a 51-year-old female who is awake and alert and oriented to person, place, time and situation. She is verbal and conversational and does to appear to be in any acute distress. VITAL SIGNS: Temperature is 98.7, pulse 67, respirations 16, blood pressure 96/57, oxygen saturation is 99% on room air. SKIN: Warm and dry. No rashes, not diaphoretic. HEENT: Pupils are equal, round, reactive to light and accommodation. Conjunctivae pink. NECK: There is no JVP. CARDIOVASCULAR: Heart is regular. There is no murmur or rub. CHEST: Clear, symmetrical, and unlabored. ABDOMEN: Soft, nontender and nondistended. BACK: No CVA tenderness or sacral edema. EXTREMITIES: No clubbing, cyanosis or edema. Left elbow is wrapped in Kerlix dressing. DIAGNOSTIC DATA: Lab values are as follows: Hematology obtained on 03/29/2017: WBC is 4.6, hemoglobin 14.0, hematocrit 42.0, and platelet count is 140,000. Chemistries obtained on 03/29/2017: Sodium is 137, potassium 4.0, chloride 106, carbon dioxide 25, BUN 7, creatinine 0.57, glucose 131, A1c is 4.8, calcium 8.3, bilirubin 0.4, AST 122, ALT 201, alkaline phosphatase 68, CK 34, total protein 6.6, albumin 3.2. IMPRESSION AND PLAN: 1. CELLULITIS OF THE LEFT UPPER EXTREMITY. Will continue antibiotic coverage. Will schedule Toradol for inflammation as well as pain control. The patient is concerned about pain management; however, morphine caused her to itch significantly, therefore, will discontinue this, continue p.r.n. Percocet in conjunction with scheduled Toradol. 2. ELEVATED LFTs. In looking back on previous ER contacts, these have been drifting up slowly over time. This can be worked up on an outpatient basis, as they are overall stable. 3. ANXIETY. The patient appears to be getting Xanax on an outpatient basis. Will continue this. 4. DVT PROPHYLAXIS. Will continue subcutaneous Lovenox. DISPOSITION: The patient is a FULL CODE. Pending the patient's symptomatology and diagnostic findings, will re-evaluate in the a.m. for discharge tomorrow as long as blood cultures are negative. TIME: Time spent on this followup including assessment, plan, physical examination, patient education, and collaboration is 25 minutes. DICTATING PHYSICIAN: KATHY VAZQUEZ NP [id number] PHY#: [id number] ID: [id number] JOB#: [id number] ACCT: [id number] cc: >
[2017-03-29] MEDS: LACTOBACILLUS ACIDOPHILUS 250 MG TAB PO SCH ×2 (10:10→17:34)
[2017-03-29] MEDS ORDERED: KETOROLAC TROMETHAMINE INJ/PF 30 MG/1 ML SDV IV ONE (10:30)
[2017-03-29] MEDS: KETOROLAC TROMETHAMINE INJ/PF 30 MG/1 ML SDV IV SCH ×3 (12:15→23:47)
--- NOTE | 2017-03-29 16:51 | PDOC CONSULTATION ---
Consultation Consult Date: 03/28/17 Consult reason:: Left forearm cellulitis History of Present Illness Admission Date/PCP: 03/28/17 17:34 Patient complains of: Increasing left elbow pain and redness History of Present Illness: 31-year-old female who several days ago tried to pop which she thought was a bug bite. She came last where she was placed on oral antibiotics for left elbow cellulitis. After 24 hours antibiotics the redness actually had increased. Denies any loss of range of motion numbness tingling or weakness. Denies any fevers or chills. Just complains of drainage and tenderness to palpation. Past Medical History Cardiac Medical History: Reports: Congestive Heart Failure Pulmonary Medical History: Reports: Bronchitis Malignancy Medical History: Denies: Breast Cancer, Cervical Cancer, Ovarian Cancer GI Medical History: Reports: Gastroesophageal Reflux Disease Denies: Hiatal Hernia Musculoskeltal Medical History: Denies: Fibromyalgia Psychiatric Medical History: Reports: Depression, General Anxiety Disorder Denies: Bipolar Disorder, Post Traumatic Stress Disorder Hematology: Reports: Anemia Denies: Hemophilia, Sickle Cell Disease Infectious Medical History: Denies: HIV Past Surgical History Past Surgical History: Reports: Appendectomy, Section - X3, Tubal Ligation Social History Smoking Status: Current Some Day Smoker Cigarettes Packs Per Day: 0.5 Frequency of Alcohol Use: None Hx Recreational Drug Use: No Drugs: None Hx Prescription Drug Abuse: No - Advance Directive Resuscitation Status: Full Code Family History Family History: Arthritis, Malignancy, Thyroid Disfunction Parental Family History Reviewed: No Children Family History Reviewed: No Sibling(s) Family History Reviewed.: No Medication/Allergy Home Medications: No Home Medications 03/29/17 Allergies/Adverse Reactions: Penicillins Allergy (Severe, Verified 03/28/17 13:54) Anaphylaxis Review of Systems All systems: reviewed and no additional remarkable complaints except as stated - Musculoskeletal complaints which are discussed in the HPI Musculoskeletal: PRESENT: as per HPI Physical Exam Vital Signs: Temp Pulse Resp BP Pulse Ox 36.7 C 63 16 89/51 L 98 03/29/17 11:35 03/29/17 11:35 03/29/17 11:35 03/29/17 11:35 03/29/17 11:35 Intake & Output 03/28/17 03/29/17 03/30/17 06:59 06:59 06:59 Intake Total 3160 Balance 3160 Weight 78.6 kg General appearance: PRESENT: no acute distress Eye exam: PRESENT: EOMI. ABSENT: conjunctival injection, nystagmus, scleral icterus Ear exam: PRESENT: normal external ear exam. ABSENT: drainage Mouth exam: PRESENT: neck supple Neck exam: ABSENT: lymphadenopathy, thyromegaly Respiratory exam: PRESENT: symmetrical, unlabored. ABSENT: accessory muscle use , tachypnea Pulses: PRESENT: normal radial pulses Vascular exam: PRESENT: normal capillary refill GI/Abdominal exam: ABSENT: guarding, organolmegaly, tenderness Musculoskeletal exam: PRESENT: tenderness - Over the left forearm close to the elbow around the erythema and area of drainage Neurological exam: PRESENT: alert, awake, oriented to person, oriented to place , oriented to time, oriented to situation Psychiatric exam: PRESENT: appropriate affect, normal mood Skin exam: PRESENT: erythema, warm Adult Front & Back Image: 1 - Small punctate wound on the medial aspect of the forearm just distal to the elbow. Serous drainage seen no purulence. She does have induration just around the area of drainage but the remaining forearm shows no fluctuance or abscess. She has full range of motion of the elbow with pronation supination intact. Neurovascular intact distally. Results Laboratory Results: 03/29/17 05:15 03/29/17 05:15 03/29/17 03/29/17 05:15 05:15 WBC 4.6 RBC 4.84 Hgb 14.0 Hct 43.0 MCV 89 MCH 28.9 MCHC 32.5 RDW 14.6 H Plt Count 140 L Seg Neutrophils % 55.1 Lymphocytes % 31.7 Monocytes % 9.9 Eosinophils % 2.8 Basophils % 0.5 Absolute Neutrophils 2.5 Absolute Lymphocytes 1.5 Absolute Monocytes 0.5 Absolute Eosinophils 0.1 Absolute Basophils 0.0 Sodium 137.9 Potassium 4.0 Chloride 106 Carbon Dioxide 25 Anion Gap 7 BUN 7 Creatinine 0.57 Est GFR ( Amer) > 60 Est GFR (Non-Af Amer) > 60 Glucose 131 H Calcium 8.3 L Total Bilirubin 0.4 AST 122 H ALT 201 H Alkaline Phosphatase 68 Total Protein 6.6 Albumin 3.2 L Impressions: Upper Extremity CT 03/28/17 14:42 IMPRESSION: Extensive subcutaneous fat stranding consistent with given history of cellulitis; no defined abscess or evidence of osteomyelitis. Status: Image reviewed by me Assessment & Plan - Diagnosis (1) Cellulitis Qualifiers: Site of cellulitis: extremity Site of cellulitis of extremity: upper extremity Laterality: left Qualified Code(s): L03.114 - Cellulitis of left upper limb Is this a current diagnosis for this admission?: YesPlan: 31-year-old female with cellulitis of the left elbow/forearm with a small opening serous drainage. CT scan shows no evidence of abscess or fluid collection that is needed to be decompressed. I do agree with the SSS of admitting the patient for IV antibiotics. If symptoms persist or worsen then MRI may be the next step. Worse case scenario she can have a small 1 inch incision to open up in duration portion but I believe at the moment there is no surgical intervention required.
[2017-03-29] MEDS ORDERED: NICOTINE 21 MG/24 HR PATCH.TD24 TD PRN (17:54)
[2017-03-29] MEDS ORDERED: CEFTRIAXONE 2 GM/D5W RTU 2 GM/50 ML RTUPB IV SCH (18:00)
[2017-03-29] MEDS ORDERED: HYDROXYZINE HCL 10 MG TABLET ONE (18:57)
[2017-03-29 21:51] LABS: CREATININE RESULT 0.62 mg/dL (0.52-1.25)
[2017-03-29] MEDS: ZOLPIDEM TARTRATE 5 MG TABLET PO SCH (22:23)
[2017-03-30] MEDS: OXYCODONE-ACETAMINOPHEN 5-325 MG TABLET PO PRN ×2 (03:01→09:09)
[2017-03-30] MEDS: VANCOMYCIN HCL 1,000 MG in DEXTROSE 5%-WATER 250 ML IV SCH (05:00)
[2017-03-30] MEDS: KETOROLAC TROMETHAMINE INJ/PF 30 MG/1 ML SDV IV SCH (06:11)
[2017-03-30] MEDS: CLINDAMYCIN 600 MG/D5W RTU 600 MG/50 ML RTUPB IV SCH (06:40)
[2017-03-30 06:54] LABS: HEMATOCRIT 37.4 % (36.0-47.0); HEMOGLOBIN 12.2 g/dL (12.0-15.5); HGB HCT DIFFERENCE -0.8; MEAN CORPUSCULAR HEMOGLOBIN 29.6 pg (27.0-33.4); MEAN CORPUSCULAR HGB CONC 32.7 g/dL (32.0-36.0); MEAN CORPUSCULAR VOLUME 91 fl (80-97); RED BLOOD COUNT 4.13 10^6/uL (3.72-5.28); RED CELL DISTRIBUTION WIDTH 14.8 % (11.5-14.0); WHITE BLOOD COUNT 4.6 10^3/uL (4.0-10.5)
[2017-03-30 07:07] LABS: ANION GAP 7 (5-19); BLOOD UREA NITROGEN 9 mg/dL (7-20); CALCIUM 8.5 mg/dL (8.4-10.2); CARBON DIOXIDE 22 mmol/L (22-30); CHLORIDE 108 mmol/L (98-107); CREATININE RESULT 0.56 mg/dL (0.52-1.25); GLUCOSE 107 mg/dL (75-110); MAGNESIUM 1.8 mg/dL (1.6-2.3); POTASSIUM 4.5 mmol/L (3.6-5.0); SODIUM 136.7 mmol/L (137-145)
[2017-03-30] MEDS: ENOXAPARIN SODIUM INJ 40 MG/0.4 ML DISP.SYRIN SUBCUT SCH (09:08)
[2017-03-30] MEDS: LACTOBACILLUS ACIDOPHILUS 250 MG TAB PO SCH ×2 (09:09→17:06)
[2017-03-30] MEDS: DOCUSATE SODIUM 100 MG CAPSULE PO SCH ×2 (09:09→17:06)
[2017-03-30] MEDS ORDERED: ONDANSETRON 4 MG TAB.RAPDIS PO PRN (09:49)
[2017-03-30] MEDS ORDERED: SULFAMETHOXAZOLE/TRIMETHOPRIM 800-160 MG TABLET PO SCH ×2 (10:00→22:00)
--- NOTE | 2017-03-30 10:27 | PROGRESS NOTE E ---
Progress Note NAME: LULI KNOTT : 1985 AGE: 31Y DATE: 03/30/2017 ROOM: 209 SUBJECTIVE: The patient is lying in bed. The patient states that her pain is a little better than yesterday. It is no longer a 5. The patient's area looks much improved. Redness has almost completely resolved. Only the area of "pimple" is still present. The patient shrieks in pain, even with removal of gauze. I did give the patient the option of discharge today with oral antibiotics; however, the patient absolutely does not want to do this. Therefore, will transition to oral antibiotics today. Hopefully, will discharge tomorrow. The patient has expressed to nursing staff that she takes more pain medication at home in the form of Percocet; however, on review of the opiate database, it appears that the patient has a prescription for Tylenol #3 that was associated with the ER visit associated with this particular cellulitis and prescription back in January of this year of Vicodin that did not see any chronic Percocet use and cannot find a Percocet prescription within the last calendar year. Therefore, do not where the patient is getting Percocet from. However, she is adamant that she takes much larger doses of pain medication than what she is receiving here. REVIEW OF SYSTEMS: Rest of review of systems negative. MEDICATIONS: Medications have been reviewed. OBJECTIVE: GENERAL: The patient is a 31-year-old female who is awake, alert, and oriented to person, place, time, and situation. She is verbal, conversational, does not appear to be in acute distress. VITAL SIGNS: Temperature is 98.0, pulse 72, respirations 16, blood pressure is 94/61, oxygen saturation is 98% on room air. SKIN: Warm and dry. No rash. She is not diaphoretic. HEENT: Pupils equal, round, and reactive to light and accommodation. Conjunctivae pink. No JVP. CARDIOVASCULAR SYSTEM: Heart is regular. There is no murmur or rub. CHEST: Clear, symmetrical, unlabored. ABDOMEN: Soft, nontender, nondistended. BACK: No CVA tenderness or sacral edema. EXTREMITIES: No clubbing, cyanosis. No edema. Redness has receded only to the area of puncture. Complete range of motion in all extremities. DIAGNOSTICS: Lab values are as follows: Hematology obtained on 03/30/2017: WBCs are 4.6, hemoglobin is 12.2, hematocrit is 37.4, platelet count is 202,000. Chemistry obtained on 03/30/2017: Sodium is 136, potassium 4.5, chloride is 108, carbon dioxide 22, BUN 9, creatinine is 0.56, glucose 107. Calcium is 8.5, magnesium is 1.8. Blood cultures obtained on 03/28/2017 reveal no growth. Wound culture obtained on 03/28/2017 reveals gram-positive cocci in clusters. IMPRESSION AND PLAN: 1. CELLULITIS OF THE LEFT UPPER EXTREMITY ELBOW AREA. Will alternate Toradol and Tylenol for pain management. Will transition to oral antibiotics, including Bactrim and clindamycin. The patient stated that morphine caused her to itch significantly. Therefore, this was discontinued. Do not feel comfortable giving patient's opiates with her chronic benzodiazepine use. 2. ANXIETY. Continue her home dose of Xanax. 3. ELEVATED LFTs. It appears that looking back over previous ER contacts this has been dripping up slowly over time. This can be worked up on an outpatient basis. If the patient is indeed using a significant amount of Percocet, this could be related to acetaminophen. 4. DVT PROPHYLAXIS. Will continue subcu Lovenox. DISPOSITION: The patient is a FULL CODE. Pending patient's symptomatology and diagnostic findings, will re-evaluate in the a.m. for discharge. Time spent on this followup including assessment, plan, physical examination, patient education, and specialty collaboration is 20 minutes. DICTATING PHYSICIAN: KATHY VAZQUEZ NP [id number] PHY#: [id number] ID: [id number] JOB#: [id number] ACCT: [id number] cc: >
[2017-03-30] MEDS: CLINDAMYCIN HCL 150 MG CAPSULE PO SCH ×3 (11:21→23:34)
[2017-03-30] MEDS ORDERED: SULFAMETHOXAZOLE/TRIMETHOPRIM 800-160 MG TABLET PO ONE (12:00)
[2017-03-30] MEDS ORDERED: MAG HYDROX/AL HYDROX/SIMETH SUSP 30 ML UDCUP PO PRN (12:25)
[2017-03-30] MEDS: ALPRAZOLAM 0.5 MG TABLET PO PRN ×2 (13:18→23:36)
[2017-03-30] MEDS: KETOROLAC TROMETHAMINE 10 MG TABLET PO PRN ×2 (13:18→21:50)
[2017-03-30] MEDS: ACETAMINOPHEN 325 MG TABLET PO PRN ×2 (20:11→23:35)
[2017-03-30] MEDS: ZOLPIDEM TARTRATE 5 MG TABLET PO SCH (23:34)
[2017-03-31] MEDS: CLINDAMYCIN HCL 150 MG CAPSULE PO SCH (06:46)
[2017-03-31] MEDS: KETOROLAC TROMETHAMINE 10 MG TABLET PO PRN (06:48)
[2017-03-31] MEDS: LACTOBACILLUS ACIDOPHILUS 250 MG TAB PO SCH (09:54)
[2017-03-31] MEDS: ENOXAPARIN SODIUM INJ 40 MG/0.4 ML DISP.SYRIN SUBCUT SCH (09:59)
[2017-03-31] MEDS: DOCUSATE SODIUM 100 MG CAPSULE PO SCH (09:59)
[2017-03-31 10:39] VITALS: BP 98/67
--- NOTE | 2017-03-31 12:59 | DISCHARGE SUMMARY E ---
Discharge Summary NAME: LULI KNOTT : 1985 AGE: 31Y ADMITTED: 03/28/2017 DISCHARGED: 03/31/2017 CODE STATUS: FULL CODE. PRIMARY CARE PROVIDER: The patient has been referred to the [facility]. DISCHARGE DIAGNOSES: 1. MRSA cellulitis. 2. Elevated LFTs. 3. Anxiety. DISCHARGE MEDICATIONS INCLUDE: 1. Bactrim DS 1 tablet p.o. b.i.d., 20 tablets, 0 refills. 2. Ibuprofen 200 to 800 mg p.o. every 8 hours p.r.n., 20 tablets, 0 refills. DIET: As tolerated. ACTIVITY: As tolerated. HISTORY OF PRESENT ILLNESS: Patient is a 31-year-old female with a past medical history of MRSA and previous cellulitis. The patient presented to the Emergency Department with a chief complaint of an insect bite to her left elbow. The patient had been seen 2 days prior in the Emergency Department, was prescribed Keflex and Bactrim. At that time the patient did not have any abscess drainage. The patient stated that she had ever increasing pain with redness and had developed purulent drainage. The patient stated that the redness distal to it was more diffuse. The patient was able to move her elbow but had extreme pain with this. The patient said her pain was moderate to severe and was positive for opiates on admission. The patient had had previous MRSA on 07/24/2015 and the patient was referred to the hospitalist for admission and management. HOSPITAL COURSE: The patient was admitted to the medical unit. The patient was given broad-spectrum antibiotic coverage. The patient's culture grew out MRSA which is sensitive to sulfa; therefore, the patient will be continued on Bactrim. The patient received a total of 3 days of inpatient IV antibiotic therapy. The patient was seen and evaluated by Orthopedics who did not feel the patient needed intervention given that there was no evidence of drainable abscess. The patient's redness had completely resolved. I actually had difficulty locating the area at the time of discharge, other than the scabbed over opening. During the patient's stay it was complicated by her demands for opiates in conjunction with benzodiazepines. Reviewed the patient's opiate database and it appears that the patient had had an active prescription for codeine #3 from our Emergency Department on 03/26/2017 and had a prescription for Xanax from 03/06/2017 and a prescription for Vicodin from January contrary to what the patient states. The patient is not on chronic Percocet and has not on a monthly basis been receiving Xanax. Therefore, I do not feel comfortable giving the patient an opiate with benzodiazepine. The patient has had complete resolution of the cellulitis which should not require an opiate level of pain management. Therefore, the patient should be covered with NSAIDs as it appears no larger than a pimple, the patient has no fevers, has full range of motion of her extremities, and the patient does not grimace when distracted. DIAGNOSTICS: Lab values are as follows. Hematology obtained on 03/30/2017: WBCs are 4.6, hemoglobin is 12.2, hematocrit 37.4, platelet count is 202,000. Coagulation obtained on 03/28/2017: PT is 14.9, INR is 1.09. Chemistry obtained on 03/30/2017: Sodium is 136, potassium 4.5, chloride 108, carbon dioxide 22, BUN 7, creatinine 0.56, glucose 107, A1c is 4.8, calcium is 8.5, magnesium is 1.8. Drug screen obtained on 03/28/2017 is positive for opiates, negative for benzodiazepines. Wound culture obtained on 03/28/2017 reveals MRSA. Blood cultures obtained on 03/28/2017 reveal no growth. PHYSICAL EXAMINATION: GENERAL: On examination, the patient is a well-developed, well-nourished 31-year-old female who is awake, alert, and oriented to person, place, time and situation. She is verbal, conversational, ambulatory, does not appear to be in any acute distress. VITAL SIGNS: As follows: Temperature is 98.4, pulse 67, respirations 18, blood pressure is 101/65, and oxygen saturation is 98% on room air. SKIN: Warm and dry. No rash, not diaphoretic. HEENT: Pupils are equal, round, reactive to light and accommodation. Conjunctivae pink. No JVP. CARDIOVASCULAR: Heart is regular with no murmur or rub. CHEST: Clear, symmetrical, nonlabored. ABDOMEN: Soft, nontender, nondistended. BACK: No CVA tenderness or sacral edema. EXTREMITIES: No clubbing, cyanosis, edema. DISCHARGE PLAN: The patient is advised to follow up with the [facility] within 1 week for hospital followup. The patient will need to have an outpatient evaluation of abnormal LFTs. Time spent on this discharge, including assessment/plan, physical examination, patient education, resource alignment, is 25 minutes. DICTATING PHYSICIAN: KATHY VAZQUEZ NP [id number] PHY#: [id number] ID: [id number] JOB#: [id number] ACCT: [id number] cc:Shady ESTRADA NP >
== END 2017-03-31 11:16 | disposition home or self-care (01) | DRG 603 ==
LOC: ER 13:52 → EH 17:34 → UNDOADMIN 18:38 → EH 18:38 → 2N 20:15
PROVIDERS: ADMIT Family Medicine; ATTEND Family Medicine
DX: L03.114 Cellulitis of left upper limb (principal); B95.62 Methicillin resistant Staphylococcus aureus infection as the cause of diseases classified elsewhere; K21.9 Gastro-esophageal reflux disease without esophagitis; F41.1 Generalized anxiety disorder; D64.9 Anemia, unspecified; F32.9 Major depressive disorder, single episode, unspecified; F17.210 Nicotine dependence, cigarettes, uncomplicated; Z79.899 Other long term (current) drug therapy; Z88.0 Allergy status to penicillin; Z82.61 Family history of arthritis; Z80.9 Family history of malignant neoplasm, unspecified; Z83.49 Family history of other endocrine, nutritional and metabolic diseases
CPT/HCPCS: 36415; 80048; 80053; 80202; 80307; 81025; 82550; 82565; 83036; 83735; 85025; 85027; 85610; 87040; 87070; 87075; 87077; 87186; 87205; 94640; 96374; 96375; 99285; J0696; J1170; J1200; J1650; J1885; J2270; J3010; J3370; J3490; J7030; J7060

== ENCOUNTER 2017-06-02 09:49 | Emergency (ER) | payer SELFPAY ==
[2017-06-02] MEDS ORDERED: IBUPROFEN 600 MG TABLET PO ONE (10:32)
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
[2017-06-02] MEDS ORDERED: ACETAMINOPHEN 325 MG TABLET PO ONE (12:24)
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
[2017-06-02 13:27] VITALS: BP 122/81
== END 2017-06-02 13:25 | disposition home or self-care (01) ==
LOC: ER 09:49
DX: S00.12XA Contusion of left eyelid and periocular area, initial encounter (principal); S40.022A Contusion of left upper arm, initial encounter; S90.32XA Contusion of left foot, initial encounter; S70.12XA Contusion of left thigh, initial encounter; S80.12XA Contusion of left lower leg, initial encounter; S50.01XA Contusion of right elbow, initial encounter; S70.11XA Contusion of right thigh, initial encounter; Y04.2XXA Assault by strike against or bumped into by another person, initial encounter; Y93.89 Activity, other specified; Y92.009 Unspecified place in unspecified non-institutional (private) residence as the place of occurrence of the external cause; F17.210 Nicotine dependence, cigarettes, uncomplicated; Z87.892 Personal history of anaphylaxis; Z88.0 Allergy status to penicillin
CPT/HCPCS: 70486; 99284

== ENCOUNTER 2017-08-20 12:01 | Emergency (ER) | payer OTHER ==
[2017-08-20] MEDS ORDERED: HYDROCODONE/ACETAMINOPHEN 5-325 MG TABLET PO ONE (12:58)
[2017-08-20] MEDS ORDERED: CYCLOBENZAPRINE HCL 10 MG TABLET PO ONE (12:58)
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
[2017-08-20 13:26] VITALS: BP 125/90
== END 2017-08-20 13:20 | disposition home or self-care (01) ==
LOC: ER 12:01
DX: S43.402A Unspecified sprain of left shoulder joint, initial encounter (principal); S46.812A Strain of other muscles, fascia and tendons at shoulder and upper arm level, left arm, initial encounter; M25.512 Pain in left shoulder; X50.9XXA Other and unspecified overexertion or strenuous movements or postures, initial encounter; F17.200 Nicotine dependence, unspecified, uncomplicated
CPT/HCPCS: 99283; L3650

== ENCOUNTER 2018-03-22 08:30 | Emergency (ER) | payer SELFPAY ==
[2018-03-22] MEDS ORDERED: ONDANSETRON 4 MG TAB.RAPDIS PO ONE (09:14)
[2018-03-22] MEDS ORDERED: HYDROMORPHONE HCL INJ/PF 2 MG/ML AMPULE IM ONE (09:14)
--- NOTE | 2018-03-22 09:18 | ER Document Report ---
ED General - General Chief Complaint: Low Back Pain Stated Complaint: FLANK PAIN Time Seen by Provider: 03/22/18 09:14 Mode of Arrival: Ambulatory Information source: Patient Notes: 32-year-old female with history of GERD, PCOS presents with complaint of low back pain that started 3 days prior to arrival. Pain is located on the left paraspinal musculature of the lumbar spine. It is described as a stabbing, intermittent pain that radiates to her left lower quadrant. Patient has tried Motrin and Tylenol without relief. She denies any dysuria, hematuria. Patient admits to vaginal discharge with a foul odor for 9 months. She is currently sexually active with one partner but does not use protection. Her last menstrual period was 6 weeks ago. She denies any fever, chills. She has nausea without vomiting. 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 She denies any falls. Her last bowel movement was today. She denies any black or bloody stools. She denies prior similar symptoms. TRAVEL OUTSIDE OF THE [place] IN LAST 30 DAYS: No - HPI Onset: Other Onset/Duration: Gradual, Intermittent, Worse Quality of pain: Achy, Stabbing Severity: Moderate Associated symptoms: Nausea. denies: Vomiting - Related Data Allergies/Adverse Reactions: Penicillins Allergy (Severe, Verified 08/20/17 12:04) Anaphylaxis Past Medical History - General Information source: Patient - Social History Smoking Status: Never Smoker Frequency of alcohol use: None Drug Abuse: None Lives with: Spouse/Significant other Family History: Arthritis, Malignancy, Thyroid Disfunction. denies: CAD, COPD, CVA, DM, Hyperlipidemia, Hypertension Patient has suicidal ideation: No Patient has homicidal ideation: No - Past Medical History Cardiac Medical History: Denies: Hx Congestive Heart Failure Pulmonary Medical History: Reports: Hx Bronchitis Renal/ Medical History: Reports: Hx Ovarian Cysts - PCOS IN THE PAST, WAS ON METFORMIN BEFORE . Denies: Hx Peritoneal Dialysis, Hx Pelvic Inflammatory Disease Malignancy Medical History: Denies: Hx Breast Cancer, Hx Cervical Cancer, Hx Ovarian Cancer GI Medical History: Reports: Hx Gastroesophageal Reflux Disease. Denies: Hx Hiatal Hernia, Hx Ulcer Musculoskeltal Medical History: Denies Hx Fibromyalgia, Reports Hx Musculoskeletal Deformity, Reports Hx Musculoskeletal Trauma Psychiatric Medical History: Reports: Hx Anxiety, Hx Depression Denies: Hx Bipolar Disorder, Hx Post Traumatic Stress Disorder, Hx Schizophrenia Traumatic Medical History: Reports: Hx Fractures, Hx Spine Fracture Infectious Medical History: Denies: Hx HIV Past Surgical History: Reports: Hx Appendectomy, Hx Section - X3, Hx Tubal Ligation - Immunizations Immunizations up to date: Yes Hx Diphtheria, Pertussis, Tetanus Vaccination: Yes Review of Systems - Review of Systems Notes: REVIEW OF SYSTEMS: CONSTITUTIONAL : Denies fever, chills, or sweats. Denies recent illness. Denies weight loss, recent hospitalizations. EENT: Denies visual changes, eye pain. Denies nasal or sinus congestion or discharge. Denies sore throat, oral lesions, difficulty swallowing. CARDIOVASCULAR: Denies chest pain. Denies palpitations. Denies lower extremity edema. RESPIRATORY: Denies cough, cold, or chest congestion. Denies shortness of breath, wheezing. GASTROINTESTINAL: Denies abdominal pain or distention. Denies nausea, vomiting , or diarrhea. Denies blood in vomitus, stools, or per rectum. Denies black, tarry stools. Denies constipation. GENITOURINARY: Denies difficulty urinating, painful urination, frequency, blood in urine, or vaginal discharge. MUSCULOSKELETAL: Denies neck pain or stiffness. Denies joint pain or swelling. SKIN: Denies rash, lesions or sores. HEMATOLOGIC : Denies easy bruising or bleeding. LYMPHATIC: Denies swollen glands. NEUROLOGICAL: Denies confusion or altered mental status. Denies passing out or loss of consciousness. Denies dizziness or lightheadedness. Denies headache. Denies weakness or paralysis. Denies problems difficulty with ambulation, slurred speech. Denies sensory loss, numbness, or tingling. Denies seizures. PSYCHIATRIC: Denies anxiety or stress. Denies depression, suicidal ideation, or homicidal ideation. Denies visual or auditory hallucinations. Physical Exam - Vital signs Vitals: Temp Pulse Resp BP Pulse Ox 98.9 F 82 18 122/88 H 100 03/22/18 08:36 03/22/18 08:36 03/22/18 08:36 03/22/18 08:36 03/22/18 08:36 - Notes Notes: PHYSICAL EXAMINATION: GENERAL: Well-appearing, well-nourished and in no acute distress. HEAD: Atraumatic, normocephalic. EYES: Pupils equal round and reactive to light, extraocular movements intact, conjunctiva are normal. ENT: Nares patent, oropharynx clear without exudates. Moist mucous membranes. NECK: Normal range of motion, supple without lymphadenopathy LUNGS: Breath sounds clear to auscultation bilaterally and equal. No wheezes rales or rhonchi. HEART: Regular rate and rhythm without murmurs ABDOMEN: Soft, nontender, nondistended abdomen. No guarding, no rebound. No masses appreciated. Female : Thin white discharge, no cervical motion tenderness, no vaginal laceration, no external lesions. Musculoskeletal: Normal range of motion, no pitting or edema. No cyanosis. Wrist palpation along the paraspinal musculature of the lumbar spine on the left. Tender to palpation over the left sciatic notch. Straight leg raise negative bilaterally. NEUROLOGICAL: Cranial nerves grossly intact. Normal speech, normal gait. Normal sensory, motor exams PSYCH: Normal mood, normal affect. SKIN: Warm, Dry, normal turgor, no rashes or lesions noted. Course - Re-evaluation Re-evalutation: Laboratory 03/22/18 03/22/18 03/22/18 09:10 09:10 10:00 Urine Color STRAW Urine Appearance CLEAR Urine pH 7.0 Ur Specific [place] 1.005 Urine Protein NEGATIVE Urine Glucose (UA) NEGATIVE Urine Ketones NEGATIVE Urine Blood NEGATIVE Urine Nitrite NEGATIVE Urine Bilirubin NEGATIVE Urine Urobilinogen NEGATIVE Ur Leukocyte Esterase NEGATIVE Squamous Epi Cells Auto 1 Urine Mucus (Auto) RARE Urine Ascorbic Acid NEGATIVE Urine HCG, Qual NEGATIVE Trichomonas (Wet Prep) NO TRICHOMONAS SEEN Vaginal WBC NO WBCS SEEN Vaginal RBC NO RBCS SEEN Vaginal Yeast NO YEAST SEEN Chlamydia DNA (PCR) NOT DETECTED N.gonorrhoeae DNA (PCR) NOT DETECTED 32-year-old female with history of GERD, PCOS presents with complaint of low back pain that started 3 days prior to arrival. Pain is located on the left paraspinal musculature of the lumbar spine. It is described as a stabbing, intermittent pain that radiates to her left lower quadrant. Patient has tried Motrin and Tylenol without relief. She denies any dysuria, hematuria. Patient admits to vaginal discharge with a foul odor for 9 months. She is currently sexually active with one partner but does not use protection. Her last menstrual period was 6 weeks ago. She denies any fever, chills. She has nausea without vomiting. 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 She denies any falls. Patient was seen by myself upon arrival. Vital signs were reviewed. Patient is afebrile, normotensive and not hypoxic. Patient does not appear toxic or dehydrated. They are in no acute distress. Previous medical records and nursing notes reviewed. Significant findings include left lumbar paraspinal tenderness, tenderness along the left sciatic notch. 03/22/18 10:53 Patient received 1 mg of Dilaudid IM and reports improvement of pain. Patient treated with Rocephin IM 250 mg and p.o. azithromycin 1000 mg per patient's request because she is concerned for STD. Patient provided the opportunity to ask questions, and express concerns. Discharge instructions discussed. Patient is agreeable with discharge home. Return indications explained and discussed with the patient who displays understanding. Patient encouraged to return to the emergency department immediately with any concerns. 03/22/18 12:55 03/22/18 12:55 - Vital Signs Vital signs: Temp Pulse Resp BP Pulse Ox 97.6 F 56 L 18 114/71 98 03/22/18 11:55 03/22/18 11:55 03/22/18 11:55 03/22/18 11:55 03/22/18 11:43 Discharge - Discharge Clinical Impression: Vaginal discharge Low back pain with sciatica Qualifiers: Chronicity: acute Back pain laterality: left Sciatica laterality: sciatica of left side Qualified Code(s): M54.42 - Lumbago with sciatica, left side Condition: Good Disposition: HOME, SELF-CARE Instructions: Ice Packs ([facility]), Low Back Pain ([facility]), Muscle Strain ([facility]), Oral Narcotic Medication ([facility]), Pain Medication Injection ([facility]) Additional Instructions: Follow up with your physician tomorrow for further care or return to the ED IMMEDIATELY if symptoms worsen or new concerns occur. If you cannot afford to follow up with your primary care physician a list of low cost clinics have been provided at the end of your discharge papers as well. Prescriptions: Cyclobenzaprine HCl [Flexeril 10 mg Tablet] 10 mg PO TIDP PRN #15 tab PRN Reason: Hydrocodone/Acetaminophen [[place] 5-325 mg Tablet] 1 tab PO Q6H PRN #12 tablet PRN Reason: Pain Scale Of 2 Ibuprofen [Motrin 600 Mg Tablet] 600 mg PO TID #15 tablet Prednisone [Deltasone 20 mg Tablet] 3 tab PO DAILY 5 Days #15 tablet Forms: Return to Work
[2018-03-22] MEDS ORDERED: ONDANSETRON HCL 8 MG TABLET PO ONE (10:03)
[2018-03-22] MEDS ORDERED: CEFTRIAXONE INJ 250 MG VIAL IM ONE (10:03)
[2018-03-22] MEDS ORDERED: AZITHROMYCIN 250 MG TABLET PO ONE (10:03)
[2018-03-22] MEDS ORDERED: DIPHENHYDRAMINE HCL 50 MG CAPSULE PO ONE (10:05)
[2018-03-22 10:33] LABS: APPEARANCE,URINE CLEAR; BILIRUBIN,URINE NEGATIVE (NEGATIVE); COLOR,URINE STRAW; GLUCOSE, URINE NEGATIVE (NEGATIVE); KETONES,URINE NEGATIVE (NEGATIVE); LEUKOCYTE ESTERASE,URINE NEGATIVE (NEGATIVE); NITRITE,URINE NEGATIVE (NEGATIVE); PROTEIN,URINE NEGATIVE (NEGATIVE); URINE SPECIFIC GRAVITY 1.005; UROBILINOGEN,URINE NEGATIVE mg/dL (<2.0)
[2018-03-22 10:37] LABS: T.VAGINALIS (WET MOUNT) NO TRICHOMONAS SEEN
[2018-03-22 10:38] LABS: RBCS (WET MOUNT) NO RBCS SEEN; WBCS (WET MOUNT) NO WBCS SEEN; YEAST (WET MOUNT) NO YEAST SEEN
[2018-03-22] MEDS ORDERED: CYCLOBENZAPRINE HCL 10 MG TABLET PO ONE (10:53)
[2018-03-22] MEDS ORDERED: KETOROLAC TROMETHAMINE 60 MG/2 ML SDV IM ONE (10:53)
[2018-03-22] MEDS ORDERED: OXYCODONE-ACETAMINOPHEN 5-325 MG TABLET PO ONE (10:53)
[2018-03-22 11:56] VITALS: BP 114/71
[2018-03-22 12:03] LABS: CHLAM PCR NOT DETECTED (NOT DETECT); GON PCR NOT DETECTED (NOT DETECT)
== END 2018-03-22 12:00 | disposition home or self-care (01) ==
LOC: EEVIPCON 08:30 → ER 08:30
DX: M54.42 Lumbago with sciatica, left side (principal); N89.8 Other specified noninflammatory disorders of vagina; R11.0 Nausea; Z87.892 Personal history of anaphylaxis; Z88.0 Allergy status to penicillin
CPT/HCPCS: 99283; 96372; 87210; 81025; 81001; 87491; 87591; J1885; S0119 ×2; J1170; J0696